=== PATIENT | male | born 1955 | race Caucasian/White ===

== ENCOUNTER → 2018-03-12 | Outpatient (CLI) | payer OTHER | LOC: FIMAGING 08:48 | PROVIDERS: ATTEND Orthopaedic Surgery | DX: Z01.818 Encounter for other preprocedural examination (principal); M17.12 Unilateral primary osteoarthritis, left knee; M25.462 Effusion, left knee ==

== ENCOUNTER 2018-04-13 09:39 | Inpatient (IN) | payer OTHER ==
--- NOTE | 2018-04-13 06:37 | PDHPUP ---
History & Physical Update H&P update statement: This history and physical update is based on an assessment of the patient which was completed after admission or registration (within 24 hours), but prior to the surgery/procedure. H&P update: no change in patient's condition since H&P completed
--- NOTE | 2018-04-13 06:38 | PDIAF ---
- Diagnosis Diagnosis: left tka Code Status: Full Code - Medication Management Discharge Medications: Medications to Continue on Transfer ARIPiprazole [Abilify 5 mg (*)] 5 mg PO DAILY 04/02/18 [Last Taken Unknown] Chlorthalidone [Chlorthalidone 25 mg (*)] 25 mg PO DAILY 04/02/18 [Last Taken Unknown] Lisinopril [Zestril 20 mg (*)] 20 mg PO DAILY 04/02/18 [Last Taken Unknown] clonazePAM [klonoPIN (*)] 1 mg PO TID 04/02/18 [Last Taken Unknown] Discharge Medications: Refer to the Discharge Home Medication list for PRN reason. - Orders Services needed: Physical Therapy Diet Recommendation: no restrictions on diet Diet Texture: Regular Texture Diet Additional Instructions: TOTAL JOINT ARTHROPLASTY DISCHARGE INSTRUCTIONS 1. Your surgeon follows the [facility] protocol for reducing your risk of DVT (blood clots) following surgery. Medication will be ordered to prevent blood clots. A sudden increase in calf pain and/or swelling could indicate a blood clot in your leg. If this occurs, please call your surgeon or his/her assistant warehouse manager. An ultrasound of the leg may be necessary to diagnose a blood clot. If you have conditions that make you a higher risk for blood clots, your surgeon may use more aggressive ways to prevent them. Notify your surgeon if you think you are a high risk for blood clots. 2. Wear your white surgical stockings (LISA hose) for 2 weeks. This decreases your swelling and may help prevent blood clots. It is ok to remove LISA hose at night time to give your legs a break. 3. Swelling and bruising in the surgical leg is common. If you feel that it is excessive, please notify your surgeon. 4. Elevate your surgical leg with the ankle above the hip several times every day. Please keep the leg straight when you elevate by putting pillows under your foot. Do not put pillows under your knee. This will make being able to fully straighten more difficult. This is uncomfortable, but try to do it as much as possible. 5. For total knee replacements use compressive wrap on your knee for 3-5 days after surgery, then you can discontinue it. 6. Use a walker or crutches for 1-2 weeks. Progress your weight-bearing as tolerated. You may start to use a cane when you feel stable and safe. 7. You will receive physical therapy instructions in the hospital. Continue those exercises at home. There are additional exercises in the total joint booklet you were given before surgery. Outpatient physical therapy will begin 7- 10 days after surgery. Please schedule this in advance. 8. Use ice on your knee at least 3-5 times every day for 30 minutes. This helps reduce pain and swelling. Also use it at night before falling asleep. 9. Leave your surgical dressing in place for 2 weeks. Your dressing is water resistant, but not waterproof. Cover it with Saran Wrap or Fisfz-j-Gkim before showering. You may shower as soon as you feel safe entering a shower. If you notice bleeding from your incision 2 or 3 days after surgery, please notify your surgeon. 10. Due to narcotics, decreased activity and altered diet, most patients experience constipation after surgery. Use yztu-lgb-[id number] stool softeners while you are on narcotics. 11. You may drive a car when you are comfortable bearing weight, have good muscular control of your leg and are off narcotics. This usually occurs 2-4 weeks after surgery, depending on which leg was operated on. 12. If there are questions not addressed here, please refer the [facility] book given for more information. If you still have questions, please contact your surgeon s office. 13. If you have a life-threatening emergency, please call 911 and go to the emergency room immediately. For non-life threatening emergencies, please call your physicians office for advice before going to the emergency room. - Follow Up Care Current Providers and Referrals: CHUN JAMIL [Other] Elieser Mccain MD [Medical Doctor] -
[~2018-04-13 09:39] MED LIST: TRANEXAMIC ACID 1,000 MG in NS 100 ML IV ONE; TRANEXAMIC ACID 2,000 MG in NS 100 ML IV ONE; VANCOMYCIN 1.75 GM in D5W 500 ML IV ONE; VANCOMYCIN PHARMACY TO DOSE MISC ONE
[2018-04-13] MEDS ORDERED: THROMBIN (BOVINE) 5,000 UNIT VIAL TP ONE (09:41)
[2018-04-13] MEDS ORDERED: CALCIUM CHLORIDE 1 GM/10 ML INJ ONE (09:42)
[2018-04-13] MEDS ORDERED: ceFAZolin 1 GM/5 ML SYR ONE (09:44)
[2018-04-13] MEDS ORDERED: ACETAMINOPHEN 325 MG TAB PO ONE (09:51)
[2018-04-13] MEDS ORDERED: FAMOTIDINE 20 MG TAB PO ONE (09:51)
[2018-04-13] MEDS ORDERED: LR 1,000 ML IV ONE (09:54)
--- NOTE | 2018-04-13 11:19 | PDANEPAE ---
ANE Past Medical History - Cardiovascular History Hx Hypertension: Yes Hx Arrhythmias: No Hx Chest Pain: No Hx Coronary Artery / Peripheral Vascular Disease: No Hx CHF / Valvular Disease: No Hx Palpitations: No - Pulmonary History Hx COPD: No Hx Asthma/Reactive Airway Disease: No Hx Recent Upper Respiratory Infection: No Hx Oxygen in Use at Home: No Hx Sleep Apnea: No Sleep Apnea Screening Result - Last Documented: Positive - Neurologic History Hx Cerebrovascular Accident: No Hx Seizures: No Hx Dementia: No - Endocrine History Hx Diabetes: No Hypothyroid: No Hyperthyroid: No Obesity: yes, moderate - Renal History Hx Renal Disorders: No - Liver History Hx Hepatic Disorders: No - Neurological & Psychiatric Hx Hx Neurological and Psychiatric Disorders: Yes Neurological / Psychiatric History Comment: ANXIETY - Cancer History Hx Cancer: Yes Cancer History Comment: BASAL CELL REMOVED - Congenital Disorder History Hx Congenital Disorders: No - GI History GERD: no Hx Gastrointestinal Disorders: No - Other Health History Other Health History: NEG - Chronic Pain History Chronic Pain: Yes (L KNEE) - Surgical History Prior Surgeries: NONE ANE Review of Systems Review of Systems: - Exercise capacity METS (RN): 4 METS ANE Patient History - Allergies Allergies/Adverse Reactions: lidocaine Allergy (Verified 04/02/18 10:03) Other-Enter Comments methylprednisolone [From Depo-Medrol] Allergy (Verified 04/02/18 10:03) Other-Enter Comments Penicillins Allergy (Verified 04/02/18 10:02) Other-Enter Comments - Home Medications Home Medications: ARIPiprazole [Abilify 5 mg (*)] 5 mg PO DAILY 04/02/18 [Last Taken 04/13/18 05: 30] Chlorthalidone [Chlorthalidone 25 mg (*)] 25 mg PO DAILY 04/02/18 [Last Taken ] Lisinopril [Zestril 20 mg (*)] 20 mg PO DAILY 04/02/18 [Last Taken 04/12/18] clonazePAM [klonoPIN (*)] 1 mg PO TID 04/02/18 [Last Taken 04/13/18 05:30] - NPO status NPO Since - Liquids (Date): 04/12/18 NPO Since - Liquids (Time): 07:30 NPO Since - Solids (Date): 04/12/18 NPO Since - Solids (Time): 21:00 - Anes Hx Hx Anesthesia Complications (with details): no h/o anesthesia - Smoking Hx Smoking Status: Never smoked Marijuana use: No - Alcohol Use Alcohol Use: Rarely - Family Anes Hx Family Anes Hx: neg - N/A Family Hx Anesthesia Complications: NEG ANE Labs/Vital Signs - Vital Signs Blood Pressure: 117/80 Heart Rate: 79 Respiratory Rate: 14 O2 Sat (%): 90 Height: 172.72 cm Weight: 114.759 kg ANE Physical Exam - Airway Neck exam: FROM Mallampati Score: Class 2 Mouth exam: normal dental/mouth exam - Pulmonary Pulmonary: no respiratory distress, no rales or rhonchi, clear to auscultation - Cardiovascular Cardiovascular: regular rate and rhythym, no murmur, rub, or gallop - ASA Status ASA Status: III ANE Anesthesia Plan Anesthesia Plan: MAC, spinal Regional Anesthesia: single shot NB, adductor canal FNB Total IV Anesthesia: No
[2018-04-13] MEDS ORDERED: fentaNYL 100 MCG/2 ML INJ ONE (12:12)
[2018-04-13] MEDS ORDERED: PROPOFOL/EMULSION 500 MG/50 ML BOTTLE IV ONE ×2 (12:13→13:10)
[2018-04-13] MEDS ORDERED: MIDAZOLAM 2 MG/2 ML VIAL ONE (12:13)
[2018-04-13] MEDS ORDERED: MIDAZOLAM 2 MG/2 ML VIAL IVP ONE (12:15)
[2018-04-13] MEDS ORDERED: BUPI/epINEPH/KETOROLAC/morphINE IU ONE (13:00)
[2018-04-13] MEDS ORDERED: ROPIVACAINE HCL 150 MG/30 ML INJ ONE (13:32)
[2018-04-13] MEDS ORDERED: fentaNYL 100 MCG/2 ML INJ IVP PRN (13:37)
[2018-04-13] MEDS ORDERED: ACETAMINOPHEN 500 MG TAB PO PRN (13:37)
[2018-04-13] MEDS ORDERED: PHENYLEPHRINE HCL 100 MCG/ML SYR IVP PRN (13:37)
[2018-04-13] MEDS ORDERED: HYDROCODONE/APAP 5/325 TAB PO PRN (13:37)
[2018-04-13] MEDS ORDERED: oxyCODONE IR 5 MG TAB PO PRN (13:37)
[2018-04-13] MEDS ORDERED: NALOXONE HCL 0.4 MG/ML INJ IVP PRN (13:37)
[2018-04-13] MEDS ORDERED: ONDANSETRON 4 MG/2 ML VIAL IVP PRN ×2 (13:37→14:03)
[2018-04-13] MEDS ORDERED: LR 500 ML IV PRN (13:37)
[2018-04-13] MEDS ORDERED: PROMETHAZINE HCL 25 MG/ML INJ IVP PRN ×2 (13:37→14:03)
[2018-04-13] MEDS ORDERED: LACTULOSE 20 GM/30 ML UDCUP PO PRN (14:03)
[2018-04-13] MEDS ORDERED: METOCLOPRAMIDE 10 MG/2 ML VIAL IVP PRN (14:03)
[2018-04-13] MEDS ORDERED: POLYETHYLENE GLYCOL 3350 17 GM PKT PO PRN (14:03)
[2018-04-13] MEDS ORDERED: DIPHENOXYLATE/ATROPINE LOMOTIL 1 TAB PO PRN (14:03)
[2018-04-13] MEDS ORDERED: CYCLOBENZAPRINE 10 MG TAB PO PRN (14:03)
[2018-04-13] MEDS ORDERED: TEMAZEPAM 15 MG CAP PO PRN (14:03)
[2018-04-13] MEDS ORDERED: BISACODYL 10 MG SUPP PR PRN (14:03)
[2018-04-13] MEDS ORDERED: PROMETHAZINE HCL 25 MG SUPPR PR PRN (14:03)
[2018-04-13] MEDS ORDERED: diphenhydrAMINE 25 MG CAP PO PRN (14:03)
[2018-04-13] MEDS ORDERED: MAGNESIUM HYDROXIDE 30 ML UDCUP PO PRN (14:03)
[2018-04-13] MEDS ORDERED: ONDANSETRON DISINTEGRATING 4 MG TAB PO PRN (14:03)
--- NOTE | 2018-04-13 14:03 | POSTOPPROG ---
Post Op Note Date of Operation: 04/13/18 Surgeon: Elieser Mccain Preparation Center Coordinator: arturo Anesthesiologist: edwin Anesthesia: Spinal Pre-op Diagnosis: left knee djd Post-op Diagnosis: same Indication: same Procedure: left tka Inf/Abcess present in the surg proc area at time of surgery?: No Depth: Deep Incisional (Fascial) EBL: 100-500
[2018-04-13] MEDS ORDERED: TRANEXAMIC ACID 650 MG TAB PO SCH (14:15)
--- NOTE | 2018-04-13 14:27 | POSTANESTH ---
Post Anesthetic Evaluation Cardiovascular Status: Normal, Stable Respiratory Status: Normal, Stable Level of Consciousness/Mental Status: Can Participate in Eval Pain Control: Adequate, Prn Tx Ordered Nausea/Vomiting Control: Adequate, Prn Tx Ordered Complications Possibly Related to Anesthesia: None Noted
[2018-04-13] MEDS ORDERED: LR 1,000 ML IV SCH (14:30)
--- NOTE | 2018-04-13 14:30 | PDMN ---
Medical Necessity Medical necessity: [facility] S-700, Knee Arthroplasty, CPT 48578, meets inpt criteria based on MD order, FACUNDO, and pre-auth [id number].
[2018-04-13] MEDS: clonazePAM 0.5 MG TAB PO SCH ×3 (15:53→21:44)
[2018-04-13] MEDS: ACETAMINOPHEN 325 MG TAB PO SCH (17:05)
[2018-04-13] MEDS: TRANEXAMIC ACID 650 MG TAB PO SCH (17:05)
[2018-04-13] MEDS: ASPIRIN 325 MG TAB PO SCH (21:43)
[2018-04-13] MEDS: SENNOSIDES/DOCUSATE SODIUM TAB PO SCH (21:43)
[2018-04-13] MEDS: FAMOTIDINE 20 MG TAB PO SCH (21:44)
[2018-04-13] MEDS: oxyCODONE IR 5 MG TAB PO PRN (22:38)
[2018-04-14] MEDS: ACETAMINOPHEN 325 MG TAB PO SCH ×2 (00:15→05:29)
[2018-04-14] MEDS: TRANEXAMIC ACID 650 MG TAB PO SCH ×2 (02:48→10:38)
[2018-04-14] MEDS: oxyCODONE IR 5 MG TAB PO PRN ×2 (05:29→10:54)
--- NOTE | 2018-04-14 07:27 | PDIAF ---
- Diagnosis Diagnosis: left tka Code Status: Full Code - Medication Management Discharge Medications: Medications to Continue on Transfer ARIPiprazole [Abilify 5 mg (*)] 5 mg PO DAILY 04/02/18 [Last Taken 04/13/18 05: 30] Chlorthalidone [Chlorthalidone 25 mg (*)] 25 mg PO DAILY 04/02/18 [Last Taken ] Lisinopril [Zestril 20 mg (*)] 20 mg PO DAILY 04/02/18 [Last Taken 04/12/18] clonazePAM [klonoPIN (*)] 1 mg PO TID 04/02/18 [Last Taken 04/13/18 05:30] Aspirin [Aspirin 325 mg (*)] 325 mg PO DAILY tab 04/14/18 [Last Taken Unknown] oxyCODONE IR [Oxycodone Ir (*)] 5 - 10 mg PO Q3HRS PRN #60 tab 04/14/18 [Last Taken Unknown] Discharge Medications: Refer to the Discharge Home Medication list for PRN reason. - Orders Services needed: Physical Therapy Diet Recommendation: no restrictions on diet Diet Texture: Regular Texture Diet Additional Instructions: TOTAL JOINT ARTHROPLASTY DISCHARGE INSTRUCTIONS 1. Your surgeon follows the [facility] protocol for reducing your risk of DVT (blood clots) following surgery. Medication will be ordered to prevent blood clots. A sudden increase in calf pain and/or swelling could indicate a blood clot in your leg. If this occurs, please call your surgeon or his/her school bus driver/teacher assistant. An ultrasound of the leg may be necessary to diagnose a blood clot. If you have conditions that make you a higher risk for blood clots, your surgeon may use more aggressive ways to prevent them. Notify your surgeon if you think you are a high risk for blood clots. 2. Wear your white surgical stockings (LISA hose) for 2 weeks. This decreases your swelling and may help prevent blood clots. It is ok to remove LISA hose at night time to give your legs a break. 3. Swelling and bruising in the surgical leg is common. If you feel that it is excessive, please notify your surgeon. 4. Elevate your surgical leg with the ankle above the hip several times every day. Please keep the leg straight when you elevate by putting pillows under your foot. Do not put pillows under your knee. This will make being able to fully straighten more difficult. This is uncomfortable, but try to do it as much as possible. 5. For total knee replacements use compressive wrap on your knee for 3-5 days after surgery, then you can discontinue it. 6. Use a walker or crutches for 1-2 weeks. Progress your weight-bearing as tolerated. You may start to use a cane when you feel stable and safe. 7. You will receive physical therapy instructions in the hospital. Continue those exercises at home. There are additional exercises in the total joint booklet you were given before surgery. Outpatient physical therapy will begin 7- 10 days after surgery. Please schedule this in advance. 8. Use ice on your knee at least 3-5 times every day for 30 minutes. This helps reduce pain and swelling. Also use it at night before falling asleep. 9. Leave your surgical dressing in place for 2 weeks. Your dressing is water resistant, but not waterproof. Cover it with Saran Wrap or Yecxc-d-Bnel before showering. You may shower as soon as you feel safe entering a shower. If you notice bleeding from your incision 2 or 3 days after surgery, please notify your surgeon. 10. Due to narcotics, decreased activity and altered diet, most patients experience constipation after surgery. Use tfax-lef-hwigvrn stool softeners while you are on narcotics. 11. You may drive a car when you are comfortable bearing weight, have good muscular control of your leg and are off narcotics. This usually occurs 2-4 weeks after surgery, depending on which leg was operated on. 12. If there are questions not addressed here, please refer the [facility] book given for more information. If you still have questions, please contact your surgeon s office. 13. If you have a life-threatening emergency, please call 911 and go to the emergency room immediately. For non-life threatening emergencies, please call your physicians office for advice before going to the emergency room. - Follow Up Care Current Providers and Referrals: CHUN JAMIL [Other] Elieser Mccain MD [Medical Doctor] -
--- NOTE | 2018-04-14 07:28 | SOAPPROG ---
SOAP Progress Note Assessment/Plan: Assessment: l tka Plan: stable d/c home dvt precautions reviewed f/u at two weeks 04/14/18 07:27 Subjective: no co no cp or sob doug po Objective: Vital Signs Temp Pulse Resp BP Pulse Ox 36.4 C 75 16 144/94 H 95 04/14/18 04:00 04/14/18 04:00 04/14/18 04:00 04/14/18 04:00 04/14/18 04:00 Laboratory Results 04/14/18 04:32 04/13/18 04/14/18 04/15/18 05:59 05:59 05:59 Intake Total 2185 Output Total 655 Balance 1530 dressing intact intact pf,df,ehl toes warm and pink neg homans reg xrays stable alignment ICD10 Worksheet Patient Problems: Problems Problem Status Onset Arthritis of knee Acute - ICD10 Problem Qualifiers (1) Arthritis of knee
[2018-04-14 07:30] VITALS: BP 109/71
--- NOTE | 2018-04-14 08:49 | ASMTLACE ---
HAWA Acuity / Level of Answers: Yes Care: Did the patient have an inpatient admission? Comorbidities - select Answers: Any tumor (including all that apply lymphoma or leukemia) Opioid dependence / Chronic pain Other Notes: HTN # of Emergency department Answers: 0 visits in the last 6 months Social determinants Answers: Mental health diagnosis (anxiety, depression, pers onality disorders, etc.) Score: 13 Date Signed: 04/14/2018 08:49 AM Electronically Signed By:Mary Calvin
[2018-04-14] MEDS ORDERED: ARIPiprazole 5 MG TAB PO SCH (09:00)
[2018-04-14] MEDS ORDERED: LISINOPRIL 20 MG TAB PO SCH (09:00)
[2018-04-14] MEDS ORDERED: CHLORTHALIDONE 25 MG TAB PO SCH (09:00)
[2018-04-14] MEDS: SENNOSIDES/DOCUSATE SODIUM TAB PO SCH (09:17)
[2018-04-14] MEDS: ASPIRIN 325 MG TAB PO SCH (09:17)
[2018-04-14] MEDS: FAMOTIDINE 20 MG TAB PO SCH (09:17)
[2018-04-14] MEDS: clonazePAM 0.5 MG TAB PO SCH (09:17)
--- NOTE | 2018-04-14 15:06 | ASMTCMCOM ---
CM Note CM Note Notes: Pt medically stable for d/c with [facility] PT. Orders to be obtained via [employer]. Date Signed: 04/14/2018 03:06 PM Electronically Signed By:MARVIN Jordan
--- NOTE | 2018-04-29 07:26 | GOP ---
[f rep st] OPERATIVE REPORT DATE OF OPERATION: 04/13/2018 SURGEON: Elieser Mccain MD FINANCIAL REPORTING DIRECTOR: Ankur Harrison, SODA JERKER, SWIMMING POOL SALESPERSON; photography assistant who was a medical necessity for the entiret y of the case preoperative. PREOPERATIVE DIAGNOSIS: Left knee degenerative joint disease. POSTOPERATIVE DIAGNOSIS: Left knee degenerative joint disease. PROCEDURE PERFORMED: Left total knee arthroplasty. FINDINGS: SPECIMENS: To Pathology, the bony cuts. INDICATIONS: The patient is a 63-year-old gentleman with end-stage arthritis to his left knee. He h as failed all attempts at conservative management. I have recommended surgical intervention. I have outlined the surgical procedure, risks, benefits, and alternatives. He wished to proceed. Written consent was signed and placed in patient's chart. DESCRIPTION OF PROCEDURE: The patient was identified in the preanesthesia area. The left knee was c learly demarcated as the operative site with indelible marker. He was given 2 g of Ancef intravenous ly en route to the operative suite. In the OR, a spinal anesthetic was administered followed by lissette tion. He was placed in supine position. The left knee and lower extremity were sterilely prepped an d draped in usual fashion. Appropriate time-out procedure was carried out. A standard anterior midl ine incision was made. Thick subcutaneous flaps were elevated followed by medial parapatellar arthro ze. Subperiosteal elevation was carried out to the mid coronal plane, and retractors were placed. There was tricompartmental arthritis. Additional incision was made over the mid tibia. Two referen ce pins were then placed for the Vesocclude MedicalOplasty tibia reference array. Tibial checkpoint was placed. Tw o pins were placed through the medial femur, and the medial femoral checkpoint was placed. All bony landmarks were entered into the computer in standard fashion. Using the software and soft tissue rel eases, the knee was balanced through the flexion-extension arc. Resections were then made using the MAKOplasty robot for a size 6 femur, a size 5 tibia, and ultimately a 5 x 11 mm polyethylene spacer w as selected. This allowed full extension and flexion without instability through the flexion-extensi on arc. The trial components were withdrawn. A size 5 tibia placed in press-fit technique. A size 6 femur placed in a press-fit technique, and a 5 x 11 mm polyethylene spacer placed and confirmed to be fully seated. The knee was stable through flexion-extension arc to varus and valgus stress as pre vious. The patella was then everted and cut in a freehand cutting technique. Three drill holes were made for a size 38 mm patella, and a press-fit 38 mm patella was placed. The knee was taken through flexion and extension and was stable. The knee cap tracked centrally. The wound was copiously irri gated. The deep tissues were injected with a joint cocktail of ropivacaine, morphine, Toradol, and e pinephrine. Medial parapatellar arthrotomy closed using #1 Ethibond suture. The deep capsule inject ed with a platelet-rich plasma. Subcutaneous tissue closed using 2-0 Monocryl and the skin with stap les. A sterile dressing was applied. The patient was awakened, extubated, and taken to [facility] in good stable condition. TOTAL TOURNIQUET TIME: 65 minutes. COMPLICATIONS: None. IMPLANTS: Otisco Triathlon knee, posterior-stabilized femoral component size 6, size 5 tibia, 5 x 1 1 mm tibial bearing insert, 38 mm patella. DISPOSITION: To the recovery room, then the floor. /[id number]/MODL
--- NOTE | 2018-04-29 07:32 | GDS ---
[f rep st] DISCHARGE SUMMARY ADMIT DIAGNOSIS: Left knee degenerative joint disease. DISCHARGE DIAGNOSIS: Left knee degenerative joint disease. PROCEDURE: Left total knee Arthroplasty-MAKOplasty. HISTORY OF PRESENT ILLNESS: Rachid Coleman is a 63-year-old gentleman with end-stage arthritis who pr esents for elective total knee replacement. HOSPITAL COURSE: He was admitted to the hospital floor after postop total knee replacement. He tole rated the procedure well. He had no complications. At time of discharge, he is tolerating an oral d iet. Pain is well controlled on oral medicines. He is voiding without difficulty. Incision is stab le. He has been cleared by therapy. DISCHARGE INSTRUCTIONS: Discharge activity: Weightbearing and range of motion as tolerated. Daily dressing changes. No soaking or immersion. Seek attention for increasing swelling, pain, shortness of breath, or other appropriate complaint. FOLLOWUP: Followup in 2 weeks. DISCHARGE MEDICATIONS: Oxycodone 5 mg 1-2 every 4 hours p.r.n. pain, aspirin 325 mg p.o. daily for 6 weeks. /[id number]/MODL
== END 2018-04-14 12:29 | disposition home health service (06) | DRG 470 ==
LOC: F3N 09:39
PROVIDERS: ADMIT Orthopaedic Surgery; ATTEND Orthopaedic Surgery
PROC: 0SRD0JZ Replacement of Left Knee Joint with Synthetic Substitute, Open Approach (ICD-10-PCS; principal; 2018-04-13 11:15)
DX: M17.12 Unilateral primary osteoarthritis, left knee (principal); Z68.41 Body mass index [BMI] 40.0-44.9, adult; E66.9 Obesity, unspecified; I10 Essential (primary) hypertension
CPT/HCPCS: 97116-GP; 97161-GP; 97165-GO; J0171; J1885; J2250; J2270; J2704; J2795; J3010; J3370

== ENCOUNTER → 2018-07-01 | Outpatient (CLI) | payer OTHER | LOC: BMCIMAGING 13:19 | PROVIDERS: ATTEND Orthopaedic Surgery | DX: Z47.1 Aftercare following joint replacement surgery (principal); Z96.652 Presence of left artificial knee joint ==

== ENCOUNTER → 2018-09-30 | Outpatient (CLI) | payer OTHER | END | disposition home or self-care (01) | LOC: BMCIMAGING 13:27 | PROVIDERS: ATTEND Orthopaedic Surgery | DX: Z09 Encounter for follow-up examination after completed treatment for conditions other than malignant neoplasm (principal); Z96.652 Presence of left artificial knee joint ==

== ENCOUNTER → 2019-03-31 | Outpatient (CLI) | payer OTHER | LOC: BMCIMAGING 13:36 ==